=== PATIENT | female | born 1985 | race Caucasian/White ===

== ENCOUNTER 2018-11-09 22:13 | Emergency (ER) | payer MEDICAID ==
[~2018-11-09] VITALS: Ht 154.9 cm; Wt 110.0 kg
[2018-11-09] MEDS ORDERED: SODIUM CHLORIDE 0.9% 1,000 ML IV ONE (23:09)
[2018-11-09 23:20] LABS: CLARITY URINE CLEAR (CLEAR); COLOR URINE YELLOW (YELLOW); KETONES URINE NEGATIVE (NEGATIVE); LEUKOCYTE ESTERASE URINE TRACE (NEGATIVE); NITRITE URINE NEGATIVE (NEGATIVE); OCCULT BLOOD URINE 3+ (NEGATIVE); PROTEIN URINE NEGATIVE (NEGATIVE); SPECIFIC GRAVITY URINE 1.015 (1.005-1.030); UROBILINOGEN URINE 0.2 E.U./dL (0.2-1.0)
[2018-11-09 23:41] LABS: BASOPHILS % 0.4 % (0.0-2.0); HEMATOCRIT. 33.5 % (36.0-48.0); LYMPHOCYTES % 18.2 % (20.0-50.0); MEAN CORPUSCULAR HEMOGLOBIN 28.1 pg (28.0-32.0); MEAN CORPUSCULAR VOLUME 85.7 fL (81.0-99.0); MEAN PLATELET VOLUME 7.5 fl (7.4-10.4); MONOCYTES % 4.4 % (2.0-8.0); PLATELET 519 x1000/uL (130-400); RED BLOOD CELL COUNT 3.91 mill/uL (4.2-5.4); RED CELL DISTRIBUTION WIDTH 15.9 % (11.6-14.6)
[2018-11-09 23:47] LABS: CHLORIDE 100 mEq/L (98-107)
[2018-11-10] LABS: *BARBITURATES SCREEN URINE NEGATIVE (NEGATIVE)
[2018-11-10 00:02] LABS: *AMPHETAMINES SCREEN URINE NEGATIVE (NEGATIVE); *BENZODIAZEPINES SCREEN URINE NEGATIVE (NEGATIVE); *COCAINE SCREEN URINE NEGATIVE (NEGATIVE)
[2018-11-10 00:03] LABS: METHADONE URINE SCREEN NEGATIVE (NEGATIVE); OPIATES URINE SCREEN NEGATIVE (NEGATIVE); PHENCYCLIDINE URINE SCREEN NEGATIVE (NEGATIVE)
[2018-11-10 00:04] LABS: CANNABINOID URINE SCREEN NEGATIVE (NEGATIVE)
[2018-11-10 01:27] VITALS: BP 104/56
== END 2018-11-10 01:34 | disposition home or self-care (01) ==
LOC: ER 22:13
DX: N39.0 Urinary tract infection, site not specified (principal); R07.89 Other chest pain; R53.1 Weakness; R42 Dizziness and giddiness; E03.9 Hypothyroidism, unspecified; Z88.6 Allergy status to analgesic agent; Z88.5 Allergy status to narcotic agent; Z98.890 Other specified postprocedural states; Z98.51 Tubal ligation status
CPT/HCPCS: 36415; 71045; 80053; 80305; 81003; 81025; 84484; 85025; 85379; 93005; 96360; 96361; 99284; J7030